=== PATIENT | female | born 1960 | race Caucasian/White ===

== ENCOUNTER 2016-11-11 11:03 | Emergency (ER) | payer SELFPAY ==
[~2016-11-11] VITALS: Ht 170.2 cm; Wt 71.0 kg
[2016-11-11 11:09] VITALS: BP 138/73; PULSE 72; RESP 16; TEMP 98.4; O2SAT 100
--- NOTE | 2016-11-11 11:35 | PD ---
HPI Chief Complaint: Abdominal Pain Time Seen by Provider: 11:15 Travel History International Travel<30 days: No Contact w/Intl Traveler<30days: No Traveled to known affect area: No History of Present Illness HPI The patient was seen and examined in the presence of the nurse. For 2 months she has had intermittent discomfort in her right upper quadrant whenever she twists or turns a certain way. 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 No specific injury. It's not related to eating. No vomiting or fever or diarrhea. Severity is moderate. No alleviating factors PFSH Social History Alcohol Use: No Tobacco Use: No Substance Use: No Allergies-Medications (Allergen,Severity, Reaction): Coded Allergies: No Known Allergies (Unverified , 11/11/16) Review of Systems General / Constitutional: No: Fever HENT: No: Headaches Cardiovascular: No: Chest Pain or Discomfort Respiratory: No: Cough Physical Exam Narrative GASTROINTESTINAL: Abdomen soft, non-tender, nondistended. Positive bowel sounds. No hepato-splenomegaly, or palpable masses. No guarding. SKIN: Focused skin assessment reveals no rash or ulcers. Skin is warm and dry. Palpation shows no induration or nodules. Psych: Normal mood and affect. Normal insight and judgment. Data Data Last Documented VS Vital Signs Date Time Temp Pulse Resp B/P Pulse Ox O2 Delivery O2 Flow Rate FiO2 11/11/16 11:09 98.4 72 16 138/73 100 MDM Medical Decision Making Medical Screen Exam Complete: Yes Emergency Medical Condition: Yes Medical Record Reviewed: Yes Differential Diagnosis Abdominal wall strain, abdominal wall hernia, cholecystitis Narrative Course I have reviewed the patient's electronic medical record. Patient's abdomen is soft and benign and nontender. It's brought on by torso twisting and certain movements. It seems abdominal wall musculature related. Stable for outpatient family physician follow-up. I don't think extensive imaging is indicated or would be helpful Diagnosis Primary Impression: Abdominal wall strain Qualified Code: S39.011A - Abdominal wall strain, initial encounter Additional Instructions: The patient was advised to follow up with their physician and return if they worsen. Med/Other Pt SpecificInfo: Other Disposition: 01 DISCHARGE HOME Condition: Stable Trevin Heller MD Nov 11, 2016 11:35
== END 2016-11-11 11:52 | disposition home or self-care (01) ==
LOC: PHED 11:03
DX: S39.011A Strain of muscle, fascia and tendon of abdomen, initial encounter (principal); X58.XXXA Exposure to other specified factors, initial encounter; Y93.H2 Activity, gardening and landscaping; Y92.096 Garden or yard of other non-institutional residence as the place of occurrence of the external cause; Y99.9 Unspecified external cause status
CPT/HCPCS: 99282